=== PATIENT | female | born 1935 | race Caucasian/White ===

== ENCOUNTER 2021-07-04 18:07 | Emergency (ER) | payer MEDICARE, OTHER ==
[2021-07-04 18:37] LABS: Bilirubin Negative (Negative); Blood, Urine Trace (Negative); Clarity Clear (Clear); Glucose, Urine (Dipstick) 100 mg/dL (Negative); Ketone, Urine 15 mg/dL (Negative); Leukocyte Negative (Negative); Nitrite Negative (Negative); Protein, Urine (Dipstick) 30 mg/dL (Neg-Trace); Specific Gravity, Urine 1.025 (1.005-1.030); Urobilinogen 0.2 mg/dL (Less than 2); pH, Urine 5.5 (5.0-9.0)
[2021-07-04 18:47] LABS: #Lymphocytes 0.8 thou/uL (1.20-3.40); #Monocytes 0.8 thou/uL (0.11-0.59); #Neutrophils 9.9 thou/uL (1.40-6.50); %Basophils 0.4 % (0.0-1.0); %Lymphocytes 6.6 % (21.0-51.0); %Monocytes 7.3 % (0.0-10.0); %Neutrophils 85.7 % (42.0-75.0); Hemoglobin 13.8 g/dL (12.0-16.0); Mean Corpuscular HGB CONC 34.3 g/dL (32.0-36.0); Mean Corpuscular Volume 93.1 fL (78.0-98.0); Mean Platelet Volume 7.3 fL (7.4-10.4); Platelet Count 205 thou/uL (130-400); RBC Distribution Width 11.3 % (11.5-14.5); Red Blood Cell (RBC) Count 4.33 mill/uL (4.20-5.40); White Blood Cell (WBC) Count 11.6 thou/uL (4.8-10.8)
[2021-07-04 18:49] LABS: Bacteria/HPF Rare-Few HPF (None Seen); INR-International Normal Ratio 1.1; Mucous/LPF 1+ LPF (<2+); Prothrombin Time 14.2 sec (12.0-14.7); RBC/HPF 0-3 HPF (0-3); Squamous Epithelial 0-3 HPF (0-3); WBC/HPF None Seen HPF (0-3)
[2021-07-04] MEDS ORDERED: Morphine 4 MG/ML VIAL ONE (18:49)
[2021-07-04] MEDS ORDERED: Ondansetron PF 4 MG/2 ML Vial ONE (18:49)
[2021-07-04 18:58] LABS: ALT (SGPT) 19 U/L (8-55); AST (SGOT) 26 U/L (5-34); Albumin 4.2 g/dL (3.4-4.8); Alkaline Phosphatase 47 U/L (40-110); Anion Gap 20 mmol/L (10-20); BUN (Urea Nitrogen) 12 mg/dL (9.8-20.1); Bilirubin, Total 0.6 mg/dL (0.2-1.2); Calc. Creatinine Clearance 0 mL/min (70-130); Calcium 9.5 mg/dL (7.8-10.44); Carbon Dioxide 23 mmol/L (23-31); Chloride 99 mmol/L (98-107); Globulin 2.9 g/dL (2.4-3.5); Glucose 153 mg/dL (83-110); Potassium 3.9 mmol/L (3.5-5.1); Protein, Total 7.1 g/dL (5.8-8.1); Sodium 138 mmol/L (136-145)
== END 2021-07-04 23:23 ==
LOC: BURERS 18:07
DX: S42.212A Unspecified displaced fracture of surgical neck of left humerus, initial encounter for closed fracture (principal); S32.592A Other specified fracture of left pubis, initial encounter for closed fracture; R29.700 NIHSS score 0; E03.9 Hypothyroidism, unspecified; I49.3 Ventricular premature depolarization; G30.9 Alzheimer's disease, unspecified; F02.80 Dementia in other diseases classified elsewhere, unspecified severity, without behavioral disturbance, psychotic disturbance, mood disturbance, and anxiety; W19.XXXA Unspecified fall, initial encounter; Z79.899 Other long term (current) drug therapy
CPT/HCPCS: 51701; 70450; 71045; 72170; 80053; 81003; 81015; 85025; 85610; 85730; 93005; 96374; 96375; J2270; J2405

== ENCOUNTER 2021-11-29 20:19 | Inpatient (IN) | payer MEDICARE, OTHER ==
[2021-11-29] MEDS ORDERED: Ibuprofen 200 MG TAB ONE (21:08)
[2021-11-29 21:25] LABS: ALT (SGPT) 20 U/L (8-55); AST (SGOT) 18 U/L (5-34); Albumin 3.3 g/dL (3.4-4.8); Alkaline Phosphatase 47 U/L (40-110); Anion Gap 13 mmol/L (10-20); BUN (Urea Nitrogen) 10 mg/dL (9.8-20.1); Bilirubin, Total 0.3 mg/dL (0.2-1.2); Calc. Creatinine Clearance 0 mL/min (70-130); Carbon Dioxide 26 mmol/L (23-31); Chloride 93 mmol/L (98-107); Estimated GFR 85; Globulin 3.7 g/dL (2.4-3.5); Glucose 106 mg/dL (83-110); Potassium 4.3 mmol/L (3.5-5.1); Sodium 128 mmol/L (136-145)
[2021-11-29 21:37] LABS: #Neutrophils 5.8 thou/uL (1.40-6.50); %Basophils 0.5 % (0.0-1.0); %Eosinophils 0.3 % (0.0-10.0); %Lymphocytes 12.2 % (21.0-51.0); %Monocytes 12.2 % (0.0-10.0); %Neutrophils 74.8 % (42.0-75.0); Hemoglobin 9.8 g/dL (12.0-16.0); Mean Corpuscular HGB CONC 34.1 g/dL (32.0-36.0); Mean Corpuscular Hemoglobin 28.5 pg (27.0-31.0); Mean Corpuscular Volume 83.7 fL (78.0-98.0); Mean Platelet Volume 5.3 fL (7.4-10.4); Platelet Count 394 thou/uL (130-400); RBC Distribution Width 12.9 % (11.5-14.5); Red Blood Cell (RBC) Count 3.45 mill/uL (4.20-5.40); White Blood Cell (WBC) Count 7.8 thou/uL (4.8-10.8)
[2021-11-29 21:42] LABS: Bilirubin Negative (Negative); Blood, Urine Negative (Negative); Clarity Clear (Clear); Glucose, Urine (Dipstick) Negative (Negative); Ketone, Urine Negative (Negative); Leukocyte Negative (Negative); Nitrite Negative (Negative); Protein, Urine (Dipstick) Negative (Neg-Trace); pH, Urine 7.5 (5.0-9.0)
[2021-11-29] MEDS: Sodium Chloride 0.9% 1,000 ML IV SCH (23:00)
[2021-11-30 01:09] VITALS: BMI 17.5
[2021-11-30] MEDS ORDERED: Ondansetron ODT 4 MG TAB SL PRN (01:45)
[2021-11-30] MEDS ORDERED: Ondansetron PF 4 MG/2 ML Vial IVP PRN (01:45)
[2021-11-30] MEDS ORDERED: Acetaminophen 325 MG TAB PO PRN (01:45)
[2021-11-30] MEDS: Sodium Chloride 0.9% 1,000 ML IV SCH ×4 (03:05→15:28)
[2021-11-30 04:16] LABS: SARS-CoV-2 NAA Rapid Test DETECTED (NotDetected)
[2021-11-30] MEDS: Levothyroxine Sodium 50 MCG TAB PO SCH (04:38)
[2021-11-30 05:05] LABS: #Monocytes 0.6 thou/uL (0.11-0.59); #Neutrophils 3.2 thou/uL (1.40-6.50); %Basophils 0.8 % (0.0-1.0); %Eosinophils 0.3 % (0.0-10.0); %Lymphocytes 19.9 % (21.0-51.0); %Monocytes 12.6 % (0.0-10.0); %Neutrophils 66.4 % (42.0-75.0); Hemoglobin 10.2 g/dL (12.0-16.0); Mean Corpuscular HGB CONC 33.6 g/dL (32.0-36.0); Mean Corpuscular Hemoglobin 28.3 pg (27.0-31.0); Mean Corpuscular Volume 84.2 fL (78.0-98.0); Mean Platelet Volume 5.1 fL (7.4-10.4); Platelet Count 334 thou/uL (130-400); RBC Distribution Width 12.8 % (11.5-14.5); Red Blood Cell (RBC) Count 3.61 mill/uL (4.20-5.40); White Blood Cell (WBC) Count 4.8 thou/uL (4.8-10.8)
[2021-11-30 05:18] LABS: ALT (SGPT) 18 U/L (8-55); AST (SGOT) 17 U/L (5-34); Alkaline Phosphatase 41 U/L (40-110); Anion Gap 14 mmol/L (10-20); BUN (Urea Nitrogen) 7 mg/dL (9.8-20.1); Bilirubin, Total 0.4 mg/dL (0.2-1.2); Calc. Creatinine Clearance 47 mL/min (70-130); Calcium 8.8 mg/dL (7.8-10.44); Carbon Dioxide 24 mmol/L (23-31); Chloride 97 mmol/L (98-107); Estimated GFR 89; Globulin 3.4 g/dL (2.4-3.5); Glucose 109 mg/dL (83-110); Potassium 4.2 mmol/L (3.5-5.1); Protein, Total 6.4 g/dL (5.8-8.1); Sodium 131 mmol/L (136-145)
[2021-11-30] MEDS: Midodrine HCl 5 MG TAB PO SCH (08:20)
[2021-11-30] MEDS: Donepezil HCl 10 MG TAB PO SCH (08:20)
[2021-11-30] MEDS ORDERED: Bisacodyl 10 MG SUPP PR PRN (15:50)
[2021-11-30] MEDS ORDERED: Bisacodyl 5 MG TAB PO PRN (15:50)
[2021-11-30] MEDS ORDERED: Sodium Chloride 0.9% 1,000 ML IV SCH ×2 (15:52→20:00)
[2021-11-30] MEDS: Acetaminophen 325 MG TAB PO PRN (16:52)
[2021-12-01] MEDS: Levothyroxine Sodium 50 MCG TAB PO SCH (04:40)
[2021-12-01] MEDS: Acetaminophen 325 MG TAB PO PRN (04:40)
[2021-12-01 05:14] LABS: ALT (SGPT) 18 U/L (8-55); AST (SGOT) 23 U/L (5-34); Albumin 3.2 g/dL (3.4-4.8); Alkaline Phosphatase 43 U/L (40-110); Anion Gap 14 mmol/L (10-20); BUN (Urea Nitrogen) Less than 4 mg/dL (9.8-20.1); Bilirubin, Total 0.3 mg/dL (0.2-1.2); Calc. Creatinine Clearance 46 mL/min (70-130); Calcium 8.8 mg/dL (7.8-10.44); Carbon Dioxide 25 mmol/L (23-31); Chloride 99 mmol/L (98-107); Estimated GFR 89; Globulin 3.6 g/dL (2.4-3.5); Glucose 101 mg/dL (83-110); Potassium 3.6 mmol/L (3.5-5.1); Protein, Total 6.8 g/dL (5.8-8.1); Sodium 134 mmol/L (136-145)
[2021-12-01] MEDS ORDERED: Enoxaparin Sodium 40 MG/0.4 ML SYRINGE SC SCH (09:00)
[2021-12-01] MEDS ORDERED: NIRMATRELVIR 150 MG/RITONAVIR 100 MG PO SCH ×2 (09:00→11:00)
[2021-12-01] MEDS: Enoxaparin Sodium 30 MG/0.3 ML SYRINGE SC SCH (09:54)
[2021-12-01] MEDS: Donepezil HCl 10 MG TAB PO SCH (09:55)
[2021-12-01] MEDS: Midodrine HCl 5 MG TAB PO SCH (09:55)
[2021-12-01] MEDS: NIRMATRELVIR 150 MG/RITONAVIR 100 MG PO SCH (21:44)
[2021-12-02] MEDS: Acetaminophen 325 MG TAB PO PRN (00:35)
[2021-12-02 05:20] VITALS: BP 140/60; TEMP 97.8
[2021-12-02] MEDS: Levothyroxine Sodium 50 MCG TAB PO SCH (05:27)
[2021-12-02] MEDS: Enoxaparin Sodium 30 MG/0.3 ML SYRINGE SC SCH (09:07)
[2021-12-02] MEDS: NIRMATRELVIR 150 MG/RITONAVIR 100 MG PO SCH (09:07)
[2021-12-02] MEDS: Donepezil HCl 10 MG TAB PO SCH (09:08)
[2021-12-02] MEDS: Midodrine HCl 5 MG TAB PO SCH (09:08)
== END 2021-12-02 16:18 | disposition swing bed, planned readmission (89) | DRG 640 ==
LOC: BURERS 20:19 → BURMED 21:58
PROVIDERS: ADMIT Family Medicine; ATTEND Family Medicine
PROC: XW0DXF5 Introduction of Other New Technology Therapeutic Substance into Mouth and Pharynx, External Approach, New Technology Group 5 (ICD-10-PCS; principal; 2021-11-29)
DX: E87.1 Hypo-osmolality and hyponatremia (principal); U07.1 COVID-19; G30.9 Alzheimer's disease, unspecified; F02.80 Dementia in other diseases classified elsewhere, unspecified severity, without behavioral disturbance, psychotic disturbance, mood disturbance, and anxiety; I10 Essential (primary) hypertension; E03.9 Hypothyroidism, unspecified; Z88.2 Allergy status to sulfonamides; F32.A Depression, unspecified; E86.0 Dehydration
CPT/HCPCS: 36415; 71045; 80053; 81003; 83880; 84484; 85025; 87040; 87077; 87086; 87149; 87186; 93005; 94760; 96360; J1650; J7050; U0002

== ENCOUNTER 2021-12-02 16:24 | Inpatient (IN) | payer MEDICARE, OTHER ==
[2021-12-02] MEDS ORDERED: Bisacodyl 5 MG TAB PO PRN (17:38)
[2021-12-02] MEDS ORDERED: Bisacodyl 10 MG SUPP PR PRN (17:38)
[2021-12-02 18:16] VITALS: BMI 17.4
[2021-12-02] MEDS ORDERED: RITONAVIR PO SCH (21:00)
[2021-12-02] MEDS ORDERED: NIRMATRELVIR PO SCH (21:00)
[2021-12-02] MEDS: NIRMATRELVIR 150 MG/RITONAVIR 100 MG PO SCH (21:15)
[2021-12-02] MEDS: Famotidine 20 MG TAB PO SCH (21:15)
[2021-12-03] MEDS: Levothyroxine Sodium 50 MCG TAB PO SCH (05:06)
[2021-12-03] MEDS: Calcium Carbonate 600 MG + Vit D TAB PO SCH (08:45)
[2021-12-03] MEDS: Famotidine 20 MG TAB PO SCH ×2 (08:45→20:54)
[2021-12-03] MEDS: Enoxaparin Sodium 30 MG/0.3 ML SYRINGE SC SCH (08:45)
[2021-12-03] MEDS: Donepezil HCl 10 MG TAB PO SCH (08:45)
[2021-12-03] MEDS: Multivitamin W/ Minerals 1 TAB PO SCH (08:45)
[2021-12-03] MEDS: Midodrine HCl 5 MG TAB PO SCH (08:45)
[2021-12-03] MEDS: NIRMATRELVIR 150 MG/RITONAVIR 100 MG PO SCH ×2 (08:46→20:54)
[2021-12-04] MEDS: Levothyroxine Sodium 50 MCG TAB PO SCH (06:02)
[2021-12-04] MEDS: Acetaminophen 325 MG TAB PO PRN (06:04)
[2021-12-04] MEDS: Donepezil HCl 10 MG TAB PO SCH (08:15)
[2021-12-04] MEDS: Multivitamin W/ Minerals 1 TAB PO SCH (08:15)
[2021-12-04] MEDS: Calcium Carbonate 600 MG + Vit D TAB PO SCH (08:15)
[2021-12-04] MEDS: NIRMATRELVIR 150 MG/RITONAVIR 100 MG PO SCH ×2 (08:15→22:06)
[2021-12-04] MEDS: Enoxaparin Sodium 30 MG/0.3 ML SYRINGE SC SCH (08:15)
[2021-12-04] MEDS: Midodrine HCl 5 MG TAB PO SCH (08:15)
[2021-12-04] MEDS: Famotidine 20 MG TAB PO SCH ×2 (08:15→22:07)
[2021-12-04] MEDS: Latanoprost 0.005% Ophth Soln 2.5 ml Bottle EA EYE SCH (22:07)
[2021-12-05] MEDS: Levothyroxine Sodium 50 MCG TAB PO SCH (05:57)
[2021-12-05] MEDS: Multivitamin W/ Minerals 1 TAB PO SCH (09:13)
[2021-12-05] MEDS: NIRMATRELVIR 150 MG/RITONAVIR 100 MG PO SCH ×2 (09:13→21:56)
[2021-12-05] MEDS: Midodrine HCl 5 MG TAB PO SCH (09:14)
[2021-12-05] MEDS: Enoxaparin Sodium 30 MG/0.3 ML SYRINGE SC SCH (09:14)
[2021-12-05] MEDS: Donepezil HCl 10 MG TAB PO SCH (09:14)
[2021-12-05] MEDS: LEVOBUNOLOL HCL 0.5% EA EYE SCH (09:14)
[2021-12-05] MEDS: Famotidine 20 MG TAB PO SCH ×2 (09:14→21:56)
[2021-12-05] MEDS: Calcium Carbonate 600 MG + Vit D TAB PO SCH (09:14)
[2021-12-05] MEDS: Acetaminophen 325 MG TAB PO PRN (21:53)
[2021-12-05] MEDS: Latanoprost 0.005% Ophth Soln 2.5 ml Bottle EA EYE SCH (22:26)
[2021-12-06] MEDS: Levothyroxine Sodium 50 MCG TAB PO SCH (06:10)
[2021-12-06] MEDS: Enoxaparin Sodium 30 MG/0.3 ML SYRINGE SC SCH (09:23)
[2021-12-06] MEDS: Calcium Carbonate 600 MG + Vit D TAB PO SCH (09:23)
[2021-12-06] MEDS: Donepezil HCl 10 MG TAB PO SCH (09:23)
[2021-12-06] MEDS: Famotidine 20 MG TAB PO SCH ×2 (09:23→20:57)
[2021-12-06] MEDS: Multivitamin W/ Minerals 1 TAB PO SCH (09:23)
[2021-12-06] MEDS: Midodrine HCl 5 MG TAB PO SCH (09:24)
[2021-12-06] MEDS: LEVOBUNOLOL HCL 0.5% EA EYE SCH (09:24)
[2021-12-06] MEDS: Acetaminophen 325 MG TAB PO PRN (20:58)
[2021-12-06] MEDS: Latanoprost 0.005% Ophth Soln 2.5 ml Bottle EA EYE SCH (21:01)
[2021-12-07] MEDS: Acetaminophen 325 MG TAB PO PRN ×2 (06:05→21:01)
[2021-12-07] MEDS: Levothyroxine Sodium 50 MCG TAB PO SCH (06:06)
[2021-12-07] MEDS: Calcium Carbonate 600 MG + Vit D TAB PO SCH (10:15)
[2021-12-07] MEDS: Midodrine HCl 5 MG TAB PO SCH (10:16)
[2021-12-07] MEDS: Multivitamin W/ Minerals 1 TAB PO SCH (10:16)
[2021-12-07] MEDS: Donepezil HCl 10 MG TAB PO SCH (10:16)
[2021-12-07] MEDS: Famotidine 20 MG TAB PO SCH ×2 (10:16→21:00)
[2021-12-07] MEDS: LEVOBUNOLOL HCL 0.5% EA EYE SCH (10:16)
[2021-12-07] MEDS: Enoxaparin Sodium 30 MG/0.3 ML SYRINGE SC SCH (10:16)
[2021-12-07 19:06] LABS: #Lymphocytes 1.2 thou/uL (1.20-3.40); #Monocytes 0.6 thou/uL (0.11-0.59); #Neutrophils 5.8 thou/uL (1.40-6.50); %Basophils 0.4 % (0.0-1.0); %Eosinophils 0.4 % (0.0-10.0); %Lymphocytes 15.9 % (21.0-51.0); %Monocytes 7.6 % (0.0-10.0); %Neutrophils 75.8 % (42.0-75.0); Hemoglobin 11.4 g/dL (12.0-16.0); Mean Corpuscular HGB CONC 32.2 g/dL (32.0-36.0); Mean Corpuscular Hemoglobin 27.2 pg (27.0-31.0); Mean Corpuscular Volume 84.7 fL (78.0-98.0); Mean Platelet Volume 5.7 fL (7.4-10.4); Platelet Count 402 thou/uL (130-400); RBC Distribution Width 13.3 % (11.5-14.5); Red Blood Cell (RBC) Count 4.19 mill/uL (4.20-5.40); White Blood Cell (WBC) Count 7.6 thou/uL (4.8-10.8)
[2021-12-07 19:11] LABS: Bilirubin Negative (Negative); Blood, Urine Negative (Negative); Clarity Clear (Clear); Glucose, Urine (Dipstick) Negative (Negative); Ketone, Urine 15 mg/dL (Negative); Leukocyte Negative (Negative); Nitrite Negative (Negative); Protein, Urine (Dipstick) 30 mg/dL (Neg-Trace); Specific Gravity, Urine 1.015 (1.005-1.030)
[2021-12-07 19:16] LABS: Urine Culture Reflex No No
[2021-12-07 19:19] LABS: Bacteria/HPF Rare-Few HPF (None Seen); Squamous Epithelial 0-3 HPF (0-3)
[2021-12-07 19:21] LABS: RBC/HPF 0-3 HPF (0-3)
[2021-12-07 19:21] LABS: ALT (SGPT) 33 U/L (8-55); AST (SGOT) 30 U/L (5-34); Albumin 3.4 g/dL (3.4-4.8); Alkaline Phosphatase 53 U/L (40-110); Anion Gap 13 mmol/L (10-20); BUN (Urea Nitrogen) 12 mg/dL (9.8-20.1); Bilirubin, Total 0.3 mg/dL (0.2-1.2); Calc. Creatinine Clearance 39 mL/min (70-130); Calcium 9.2 mg/dL (7.8-10.44); Carbon Dioxide 31 mmol/L (23-31); Chloride 90 mmol/L (98-107); Estimated GFR 86; Globulin 3.9 g/dL (2.4-3.5); Glucose 183 mg/dL (83-110); Protein, Total 7.3 g/dL (5.8-8.1); Sodium 130 mmol/L (136-145)
[2021-12-07] MEDS: Latanoprost 0.005% Ophth Soln 2.5 ml Bottle EA EYE SCH (21:20)
[2021-12-08] MEDS: Levothyroxine Sodium 50 MCG TAB PO SCH (05:06)
[2021-12-08] MEDS: Enoxaparin Sodium 30 MG/0.3 ML SYRINGE SC SCH (09:45)
[2021-12-08] MEDS: Donepezil HCl 10 MG TAB PO SCH (09:45)
[2021-12-08] MEDS: Multivitamin W/ Minerals 1 TAB PO SCH (09:45)
[2021-12-08] MEDS: Midodrine HCl 5 MG TAB PO SCH (09:46)
[2021-12-08] MEDS: Famotidine 20 MG TAB PO SCH ×2 (09:46→21:20)
[2021-12-08] MEDS: LEVOBUNOLOL HCL 0.5% EA EYE SCH (09:46)
[2021-12-08] MEDS: Calcium Carbonate 600 MG + Vit D TAB PO SCH (09:46)
[2021-12-08] MEDS ORDERED: Timolol 0.5% Ophth Soln 5 ml Bottle EA EYE SCH (10:00)
[2021-12-08] MEDS: Latanoprost 0.005% Ophth Soln 2.5 ml Bottle EA EYE SCH (21:42)
[2021-12-09] MEDS: Levothyroxine Sodium 50 MCG TAB PO SCH (05:43)
[2021-12-09] MEDS ORDERED: Timolol 0.5% Ophth Soln 5 ml Bottle EA EYE SCH (09:00)
[2021-12-09] MEDS: Calcium Carbonate 600 MG + Vit D TAB PO SCH (11:11)
[2021-12-09] MEDS: Donepezil HCl 10 MG TAB PO SCH (11:11)
[2021-12-09] MEDS: Multivitamin W/ Minerals 1 TAB PO SCH (11:12)
[2021-12-09] MEDS: Enoxaparin Sodium 30 MG/0.3 ML SYRINGE SC SCH (11:12)
[2021-12-09] MEDS: Famotidine 20 MG TAB PO SCH ×2 (11:12→20:41)
[2021-12-09] MEDS: Midodrine HCl 5 MG TAB PO SCH (11:12)
[2021-12-09] MEDS: Timolol 0.5% Ophth Soln 5 ml Bottle EA EYE SCH (14:56)
[2021-12-09] MEDS: Latanoprost 0.005% Ophth Soln 2.5 ml Bottle EA EYE SCH (20:41)
[2021-12-10] MEDS: Levothyroxine Sodium 50 MCG TAB PO SCH (05:53)
[2021-12-10] MEDS: Multivitamin W/ Minerals 1 TAB PO SCH (08:49)
[2021-12-10] MEDS: Enoxaparin Sodium 30 MG/0.3 ML SYRINGE SC SCH (08:49)
[2021-12-10] MEDS: Calcium Carbonate 600 MG + Vit D TAB PO SCH (08:49)
[2021-12-10] MEDS: Donepezil HCl 10 MG TAB PO SCH (08:49)
[2021-12-10] MEDS: Midodrine HCl 5 MG TAB PO SCH (08:49)
[2021-12-10] MEDS: Timolol 0.5% Ophth Soln 5 ml Bottle EA EYE SCH (08:52)
[2021-12-10] MEDS: Famotidine 20 MG TAB PO SCH ×2 (08:55→21:57)
[2021-12-10] MEDS: Acetaminophen 325 MG TAB PO PRN (17:26)
[2021-12-10] MEDS ORDERED: Sodium Chloride 0.9% 1,000 ML IV SCH (17:45)
[2021-12-10] MEDS ORDERED: Sodium Chloride 0.9% 500 ML IV SCH (20:15)
[2021-12-10] MEDS: Latanoprost 0.005% Ophth Soln 2.5 ml Bottle EA EYE SCH (22:15)
[2021-12-11 04:44] LABS: #Basophils 0.1 thou/uL (0.0-0.2); #Eosinphils 0.1 thou/uL (0.0-0.7); #Lymphocytes 1.5 thou/uL (1.20-3.40); #Monocytes 0.8 thou/uL (0.11-0.59); #Neutrophils 4.8 thou/uL (1.40-6.50); %Basophils 0.7 % (0.0-1.0); %Eosinophils 0.9 % (0.0-10.0); %Lymphocytes 21.2 % (21.0-51.0); %Monocytes 10.9 % (0.0-10.0); %Neutrophils 66.3 % (42.0-75.0); Hemoglobin 9.8 g/dL (12.0-16.0); Mean Corpuscular HGB CONC 35.8 g/dL (32.0-36.0); Mean Corpuscular Hemoglobin 29.7 pg (27.0-31.0); Platelet Count 394 thou/uL (130-400); RBC Distribution Width 14.2 % (11.5-14.5); Red Blood Cell (RBC) Count 3.31 mill/uL (4.20-5.40); White Blood Cell (WBC) Count 7.2 thou/uL (4.8-10.8)
[2021-12-11 04:58] LABS: ALT (SGPT) 46 U/L (8-55); AST (SGOT) 38 U/L (5-34); Albumin 3.1 g/dL (3.4-4.8); Alkaline Phosphatase 70 U/L (40-110); Anion Gap 13 mmol/L (10-20); BUN (Urea Nitrogen) 12 mg/dL (9.8-20.1); Bilirubin, Total 0.6 mg/dL (0.2-1.2); Calc. Creatinine Clearance 44 mL/min (70-130); Calcium 9.1 mg/dL (7.8-10.44); Carbon Dioxide 30 mmol/L (23-31); Chloride 96 mmol/L (98-107); Estimated GFR 88; Globulin 3.5 g/dL (2.4-3.5); Glucose 97 mg/dL (83-110); Protein, Total 6.6 g/dL (5.8-8.1); Sodium 135 mmol/L (136-145)
[2021-12-11] MEDS: Levothyroxine Sodium 50 MCG TAB PO SCH (05:39)
[2021-12-11] MEDS: Midodrine HCl 5 MG TAB PO SCH (09:56)
[2021-12-11] MEDS: Famotidine 20 MG TAB PO SCH ×2 (09:56→20:25)
[2021-12-11] MEDS: Multivitamin W/ Minerals 1 TAB PO SCH (09:56)
[2021-12-11] MEDS: Donepezil HCl 10 MG TAB PO SCH (09:56)
[2021-12-11] MEDS: Calcium Carbonate 600 MG + Vit D TAB PO SCH (09:56)
[2021-12-11] MEDS: Enoxaparin Sodium 30 MG/0.3 ML SYRINGE SC SCH (09:56)
[2021-12-11] MEDS: Timolol 0.5% Ophth Soln 5 ml Bottle EA EYE SCH (09:57)
[2021-12-11] MEDS: Latanoprost 0.005% Ophth Soln 2.5 ml Bottle EA EYE SCH (20:25)
[2021-12-12] MEDS: Levothyroxine Sodium 50 MCG TAB PO SCH (05:29)
[2021-12-12] MEDS: Enoxaparin Sodium 30 MG/0.3 ML SYRINGE SC SCH (10:13)
[2021-12-12] MEDS: Multivitamin W/ Minerals 1 TAB PO SCH (10:14)
[2021-12-12] MEDS: Calcium Carbonate 600 MG + Vit D TAB PO SCH (10:14)
[2021-12-12] MEDS: Midodrine HCl 5 MG TAB PO SCH (10:14)
[2021-12-12] MEDS: Donepezil HCl 10 MG TAB PO SCH (10:14)
[2021-12-12] MEDS: Timolol 0.5% Ophth Soln 5 ml Bottle EA EYE SCH (10:17)
[2021-12-12] MEDS: Famotidine 20 MG TAB PO SCH ×2 (10:22→20:42)
[2021-12-12] MEDS: Latanoprost 0.005% Ophth Soln 2.5 ml Bottle EA EYE SCH (20:43)
[2021-12-13] MEDS: Levothyroxine Sodium 50 MCG TAB PO SCH (05:31)
[2021-12-13] MEDS: Multivitamin W/ Minerals 1 TAB PO SCH (09:05)
[2021-12-13] MEDS: Enoxaparin Sodium 30 MG/0.3 ML SYRINGE SC SCH (09:05)
[2021-12-13] MEDS: Calcium Carbonate 600 MG + Vit D TAB PO SCH (09:06)
[2021-12-13] MEDS: Midodrine HCl 5 MG TAB PO SCH (09:06)
[2021-12-13] MEDS: Donepezil HCl 10 MG TAB PO SCH (09:06)
[2021-12-13] MEDS: Famotidine 20 MG TAB PO SCH ×2 (09:07→21:29)
[2021-12-13] MEDS: Timolol 0.5% Ophth Soln 5 ml Bottle EA EYE SCH (09:22)
[2021-12-13] MEDS: Latanoprost 0.005% Ophth Soln 2.5 ml Bottle EA EYE SCH (21:29)
[2021-12-14] MEDS: Levothyroxine Sodium 50 MCG TAB PO SCH (05:45)
[2021-12-14] MEDS: Acetaminophen 325 MG TAB PO PRN (08:12)
[2021-12-14] MEDS: Calcium Carbonate 600 MG + Vit D TAB PO SCH (09:15)
[2021-12-14] MEDS: Midodrine HCl 5 MG TAB PO SCH (09:15)
[2021-12-14] MEDS: Donepezil HCl 10 MG TAB PO SCH (09:15)
[2021-12-14] MEDS: Multivitamin W/ Minerals 1 TAB PO SCH (09:15)
[2021-12-14] MEDS: Famotidine 20 MG TAB PO SCH ×2 (09:16→20:15)
[2021-12-14] MEDS: Enoxaparin Sodium 30 MG/0.3 ML SYRINGE SC SCH (09:16)
[2021-12-14] MEDS: Timolol 0.5% Ophth Soln 5 ml Bottle EA EYE SCH (09:16)
[2021-12-14] MEDS: Latanoprost 0.005% Ophth Soln 2.5 ml Bottle EA EYE SCH (20:17)
[2021-12-15] MEDS: Acetaminophen 325 MG TAB PO PRN (04:29)
[2021-12-15] MEDS: Levothyroxine Sodium 50 MCG TAB PO SCH (04:30)
[2021-12-15] MEDS: Midodrine HCl 5 MG TAB PO SCH (09:05)
[2021-12-15] MEDS: Donepezil HCl 10 MG TAB PO SCH (09:05)
[2021-12-15] MEDS: Multivitamin W/ Minerals 1 TAB PO SCH (09:05)
[2021-12-15] MEDS: Famotidine 20 MG TAB PO SCH ×2 (09:05→21:22)
[2021-12-15] MEDS: Enoxaparin Sodium 30 MG/0.3 ML SYRINGE SC SCH (09:06)
[2021-12-15] MEDS: Timolol 0.5% Ophth Soln 5 ml Bottle EA EYE SCH (09:06)
[2021-12-15] MEDS: Calcium Carbonate 600 MG + Vit D TAB PO SCH (09:06)
[2021-12-15] MEDS: Latanoprost 0.005% Ophth Soln 2.5 ml Bottle EA EYE SCH (21:22)
[2021-12-16] MEDS: Levothyroxine Sodium 50 MCG TAB PO SCH (05:36)
[2021-12-16] MEDS: Calcium Carbonate 600 MG + Vit D TAB PO SCH (09:44)
[2021-12-16] MEDS: Donepezil HCl 10 MG TAB PO SCH (09:44)
[2021-12-16] MEDS: Midodrine HCl 5 MG TAB PO SCH (09:44)
[2021-12-16] MEDS: Enoxaparin Sodium 30 MG/0.3 ML SYRINGE SC SCH (09:44)
[2021-12-16] MEDS: Multivitamin W/ Minerals 1 TAB PO SCH (09:44)
[2021-12-16] MEDS: Famotidine 20 MG TAB PO SCH ×2 (09:44→20:49)
[2021-12-16] MEDS: Timolol 0.5% Ophth Soln 5 ml Bottle EA EYE SCH (09:45)
[2021-12-16] MEDS ORDERED: Ondansetron PF 4 MG/2 ML Vial ONE ×2 (14:25→14:28)
[2021-12-16 14:35] LABS: #Basophils 0.1 thou/uL (0.0-0.2); #Lymphocytes 1.8 thou/uL (1.20-3.40); #Monocytes 1.2 thou/uL (0.11-0.59); #Neutrophils 5.5 thou/uL (1.40-6.50); %Basophils 1.2 % (0.0-1.0); %Eosinophils 0.5 % (0.0-10.0); %Lymphocytes 20.9 % (21.0-51.0); %Monocytes 13.4 % (0.0-10.0); %Neutrophils 64.1 % (42.0-75.0); Hemoglobin 10.3 g/dL (12.0-16.0); Mean Corpuscular HGB CONC 36.3 g/dL (32.0-36.0); Mean Corpuscular Hemoglobin 31.1 pg (27.0-31.0); Mean Corpuscular Volume 85.9 fL (78.0-98.0); Mean Platelet Volume 5.5 fL (7.4-10.4); Platelet Count 407 thou/uL (130-400); RBC Distribution Width 15.7 % (11.5-14.5); Red Blood Cell (RBC) Count 3.31 mill/uL (4.20-5.40); White Blood Cell (WBC) Count 8.6 thou/uL (4.8-10.8)
[2021-12-16 14:47] LABS: ALT (SGPT) 30 U/L (8-55); AST (SGOT) 21 U/L (5-34); Albumin 3.4 g/dL (3.4-4.8); Alkaline Phosphatase 67 U/L (40-110); Anion Gap 17 mmol/L (10-20); BUN (Urea Nitrogen) 11 mg/dL (9.8-20.1); Bilirubin, Total 0.3 mg/dL (0.2-1.2); Calc. Creatinine Clearance 37 mL/min (70-130); Calcium 9.3 mg/dL (7.8-10.44); Carbon Dioxide 22 mmol/L (23-31); Chloride 97 mmol/L (98-107); Estimated GFR 83; Globulin 3.8 g/dL (2.4-3.5); Glucose 98 mg/dL (83-110); Potassium 4.5 mmol/L (3.5-5.1); Protein, Total 7.2 g/dL (5.8-8.1); Sodium 131 mmol/L (136-145)
[2021-12-16] MEDS: Latanoprost 0.005% Ophth Soln 2.5 ml Bottle EA EYE SCH ×2 (20:50→20:54)
[2021-12-17 05:35] VITALS: TEMP 98.7
[2021-12-17] MEDS: Levothyroxine Sodium 50 MCG TAB PO SCH (05:36)
[2021-12-17] MEDS: Enoxaparin Sodium 30 MG/0.3 ML SYRINGE SC SCH (08:36)
[2021-12-17] MEDS: Calcium Carbonate 600 MG + Vit D TAB PO SCH (08:37)
[2021-12-17] MEDS: Donepezil HCl 10 MG TAB PO SCH (08:37)
[2021-12-17] MEDS: Midodrine HCl 5 MG TAB PO SCH (08:37)
[2021-12-17] MEDS: Famotidine 20 MG TAB PO SCH (08:37)
[2021-12-17] MEDS: Multivitamin W/ Minerals 1 TAB PO SCH (08:37)
[2021-12-17] MEDS: Timolol 0.5% Ophth Soln 5 ml Bottle EA EYE SCH (08:37)
[2021-12-17 08:44] VITALS: BP 103/66
[2021-12-18] MEDS ORDERED: Famotidine 20 MG TAB PO SCH (09:00)
== END 2021-12-17 13:35 | disposition home health service (06) | DRG 640 ==
LOC: BURMED 16:24
PROVIDERS: ADMIT Family Medicine; ATTEND Family Medicine
PROC: XW0DXF5 Introduction of Other New Technology Therapeutic Substance into Mouth and Pharynx, External Approach, New Technology Group 5 (ICD-10-PCS; principal; 2021-12-02)
DX: E87.1 Hypo-osmolality and hyponatremia (principal); U07.1 COVID-19; N39.0 Urinary tract infection, site not specified; E86.0 Dehydration; E03.9 Hypothyroidism, unspecified
CPT/HCPCS: 36415; 36416; 71046; 80053; 81001; 83605; 85025; 87040; 87077; 87086; 87186; J1650; J1956; J7030; U0003; U0005